=== PATIENT | male | born 1965 | race Caucasian/White ===

== ENCOUNTER → 2020-07-21 16:42 | Outpatient (CLI) | payer OTHER, SELFPAY ==
[2020-07-21] MEDS: COVID-19 VACC #1, MRNA(MOD) 100 MCG/0.5 ML VIAL IM (17:04)
== END ==
PROVIDERS: Visit Provider Internal Medicine
DX: Z23 Encounter for immunization (principal)
CPT/HCPCS: 0011A; 91301

== ENCOUNTER → 2020-08-11 07:31 | Outpatient (CLI) | payer OTHER, SELFPAY ==
[2020-08-11 08:50] LABS: Add Manual Diff / Slide Review NO; Basophils Absolute Auto 0 /uL (0-100); Basophils Percent Auto 0.5 % (0-2); Eosinophils Absolute Auto 100 /uL (0-450); Eosinophils Percent Auto 2.1 % (2-4); Hematocrit 41.3 % (41-53); Hemoglobin 13.6 g/dL (13.5-17.5); Lymphocytes Absolute Auto 1200 /uL (1100-4500); Lymphocytes Percent Auto 24.9 % (25-40); Mean Corpuscular Hemoglobin 31.1 PG (26-34); Mean Corpuscular Volume 94.1 fL (80-100); Monocytes Absolute Auto 400 /uL (0-900); Monocytes Percent Auto 9.1 % (3-14); Neutrophils Absolute Auto 3000 /uL (1500-7000); Neutrophils Percent Auto 63.4 % (50-75); Platelet Count 257 X10^3/uL (150-400); Red Blood Cell Count 4.39 X10^6/uL (4.5-5.9); Red Cell Distribution Width 13.5 % (11.6-14.8); White Blood Cell Count 4.7 X10^3/uL (4.5-11.0)
[2020-08-11 09:02] LABS: Alanine Aminotransferase 45 IU/L (<50); Albumin 4.5 g/dL (3.5-5.0); Albumin Globulin Ratio 1.7 (1.0-2.8); Alkaline Phosphatase 46 U/L (38-126); Aspartate Aminotransferase 31 IU/L (17-59); Bilirubin Total 0.3 mg/dL (0.2-1.3); Blood Urea Nitrogen 13 mg/dL (9-20); Calcium 9.4 mg/dL (8.4-10.2); Carbon Dioxide 23 mmol/L (22-32); Chloride 107 mmol/L (98-107); Estimated Glomerular Filt Rate > 60.0 mL/min (>60); Globulin 2.7 g/dL (1.7-4.1); Glucose 105 mg/dL (70-100); HEMOLYSIS < 15 (0-50); Potassium 4.2 mmol/L (3.4-5.1); Sodium 138 mmol/L (137-145); Total Protein 7.2 g/dL (6.3-8.2)
[2020-08-11 09:35] LABS: Lithium 0.6 mmol/L (0.6-1.2)
[2020-08-11 10:17] LABS: Color Urine UA Yellow
[2020-08-11 10:18] LABS: Appearance Urine UA Clear; Bilirubin Urine UA Negative (NEGATIVE); Glucose Urine UA NEGATIVE (Negative); Ketones Urine UA NEGATIVE (NEGATIVE); Leukocyte Esterase Urine UA NEGATIVE (NEGATIVE); Nitrite Urine UA NEGATIVE (Negative); Occult Blood Urine UA Negative (Negative); Protein Urine UA Negative (Negative); Urobilinogen Urine UA 0.2 E.U./dL (0.2)
== END ==
PROVIDERS: Referring Provider Psychiatry & Neurology Psychiatry; Visit Provider Psychiatry & Neurology Psychiatry
DX: F31.81 Bipolar II disorder (principal)
CPT/HCPCS: 36415; 80053; 80178; 81003; 85025

== ENCOUNTER → 2020-08-18 13:48 | Outpatient (CLI) | payer OTHER, SELFPAY ==
[2020-08-18] MEDS: COVID-19 VACC #2, MRNA(MOD) 100 MCG/0.5 ML VIAL IM (13:51)
== END ==
PROVIDERS: Visit Provider Internal Medicine
DX: Z23 Encounter for immunization (principal)
CPT/HCPCS: 0012A; 91301

== ENCOUNTER → 2020-09-21 08:33 | Outpatient (CLI) | payer OTHER, SELFPAY ==
[2020-09-21 09:17] LABS: Hemoglobin A1C% w Est Avg Glu 5.5 % (4.0-6.0)
[2020-09-21 09:50] LABS: Cholesterol 239 mg/dL (140-199); HDL Cholesterol 50 mg/dL (40-60); LDL Cholesterol Calculated 160 mg/dL (<100); Triglycerides 146 mg/dL (35-150)
== END ==
PROVIDERS: PCP Family Medicine; Referring Provider Family Medicine; Visit Provider Family Medicine
DX: E78.5 Hyperlipidemia, unspecified (principal); R73.9 Hyperglycemia, unspecified
CPT/HCPCS: 36415; 80061; 83036

== ENCOUNTER → 2021-06-10 16:50 | Outpatient (CLI) | payer OTHER, SELFPAY ==
--- NOTE | 2021-06-10 16:52 | DI.RAD.S_ITS ---
PROCEDURE: XR WRIST RT MIN 3V INDICATIONS: chronic right wrist and elbow pain TECHNIQUE: Three views of the wrist were acquired. COMPARISON: None. FINDINGS: Bones: No acute fractures or dislocations. No suspicious bony lesions. Soft tissues: No suspicious soft tissue calcifications. IMPRESSION: No acute osseous abnormality. If the symptoms persist, consider cross sectional imaging such as MRI or CT for further assessment. Dictated by: Devon Pittman M.D. on 06/10/2021 at 19:17 Approved by: Devon Pittman M.D. on 06/10/2021 at 19:19
--- NOTE | 2021-06-10 16:52 | DI.RAD.S_ITS ---
PROCEDURE: XR ELBOW RT MIN 3V INDICATIONS: chronic right wrist and elbow pain TECHNIQUE: 3 views of the elbow were acquired. COMPARISON: None. FINDINGS: Bones: No acute fractures or dislocations. No suspicious bony lesions. Soft tissues: No elbow joint effusion. No suspicious soft tissue calcifications. IMPRESSION: No acute osseous abnormality. If the symptoms persist, consider cross sectional imaging such as MRI or CT for further assessment. Dictated by: Devon Pittman M.D. on 06/10/2021 at 19:19 Approved by: Devon Pittman M.D. on 06/10/2021 at 19:19
== END ==
PROVIDERS: PCP Family Medicine; Referring Provider Family Medicine; Visit Provider Family Medicine
DX: M25.521 Pain in right elbow (principal); M25.531 Pain in right wrist
CPT/HCPCS: 73080; 73110

== ENCOUNTER → 2021-07-04 13:00 | Outpatient (CLI) | payer OTHER, SELFPAY | PROVIDERS: Family Provider Family Medicine; PCP Family Medicine; Visit Provider Student in an Organized Health Care Education/Training Program | DX: J02.9 Acute pharyngitis, unspecified (principal) | CPT/HCPCS: 87070 ==

== ENCOUNTER → 2021-07-18 10:01 | Outpatient (CLI) | payer OTHER, SELFPAY ==
[2021-07-18 12:37] LABS: Lithium 0.5 mmol/L (0.6-1.2)
== END ==
PROVIDERS: Family Provider Family Medicine; PCP Family Medicine; Referring Provider Psychiatry & Neurology Psychiatry; Visit Provider Psychiatry & Neurology Psychiatry
DX: F31.81 Bipolar II disorder (principal); F43.10 Post-traumatic stress disorder, unspecified
CPT/HCPCS: 36415; 80178

== ENCOUNTER → 2022-03-25 08:19 | Outpatient (CLI) | payer OTHER, SELFPAY ==
[2022-03-25 11:00] LABS: Add Manual Diff / Slide Review NO; Basophils Absolute Auto 0 /uL (0-100); Basophils Percent Auto 0.6 % (0-2); Eosinophils Absolute Auto 100 /uL (0-450); Eosinophils Percent Auto 1.6 % (2-4); Hematocrit 41.2 % (41-53); Hemoglobin 13.4 g/dL (13.5-17.5); Lymphocytes Absolute Auto 1200 /uL (1100-4500); Lymphocytes Percent Auto 24.7 % (25-40); Mean Corpuscular HGB Conc 32.6 % (30-36); Mean Corpuscular Hemoglobin 30.1 PG (26-34); Mean Corpuscular Volume 92.3 fL (80-100); Monocytes Absolute Auto 400 /uL (0-900); Monocytes Percent Auto 7.6 % (3-14); Neutrophils Absolute Auto 3300 /uL (1500-7000); Neutrophils Percent Auto 65.5 % (50-75); Platelet Count 251 X10^3/uL (150-400); Red Blood Cell Count 4.46 X10^6/uL (4.5-5.9); Red Cell Distribution Width 13.2 % (11.6-14.8)
[2022-03-25 11:27] LABS: Cholesterol 204 mg/dL (140-199); HDL Cholesterol 46 mg/dL (40-60); LDL Cholesterol Calculated 137 mg/dL (<100); Triglycerides 106 mg/dL (35-150)
[2022-03-25 11:27] LABS: Creatinine Urine Random 186.3 mg/dL
[2022-03-25 11:31] LABS: Microalbumi Creatinin Ratio Ur 5.9 ug/mg CR (<30); Microalbumin Urine Random 1.1 mg/dL (0-1.6)
== END ==
PROVIDERS: Family Provider Family Medicine; PCP Family Medicine; Referring Provider Family Medicine; Visit Provider Family Medicine
DX: E78.5 Hyperlipidemia, unspecified (principal); F31.81 Bipolar II disorder; F43.10 Post-traumatic stress disorder, unspecified; R73.9 Hyperglycemia, unspecified
CPT/HCPCS: 36415; 80061; 82043; 82570; 85025

== ENCOUNTER → 2022-04-01 07:26 | Outpatient (CLI) | payer OTHER, SELFPAY ==
[2022-04-01 10:31] LABS: Alanine Aminotransferase 39 IU/L (<50); Albumin 4.5 g/dL (3.5-5.0); Albumin Globulin Ratio 1.7 (1.0-2.8); Alkaline Phosphatase 54 U/L (38-126); Aspartate Aminotransferase 23 IU/L (17-59); BUN Creatinine Ratio 21.3 (6-22); Bilirubin Total 0.5 mg/dL (0.2-1.3); Blood Urea Nitrogen 16 mg/dL (9-20); Calcium 9.3 mg/dL (8.4-10.2); Carbon Dioxide 26 mmol/L (22-32); Chloride 104 mmol/L (98-107); Estimated Glomerular Filt Rate > 60 mL/min (>60); Globulin 2.7 g/dL (1.7-4.1); Glucose 112 mg/dL (70-100); HEMOLYSIS < 15 (0-50); Potassium 4.7 mmol/L (3.4-5.1); Sodium 140 mmol/L (137-145); Total Protein 7.2 g/dL (6.3-8.2)
[2022-04-05 13:27] LABS: Acetylcholine Blocking AB 17 % (0-25); Acetylcholine Receptor Bind AB <0.03 nmol/L (0.00-0.24)
== END ==
PROVIDERS: Family Provider Family Medicine; PCP Family Medicine; Referring Provider Family Medicine; Visit Provider Family Medicine
DX: F31.81 Bipolar II disorder (principal); H02.409 Unspecified ptosis of unspecified eyelid; R73.9 Hyperglycemia, unspecified
CPT/HCPCS: 36415; 80053; 83519; 86255

== ENCOUNTER → 2022-07-08 07:30 | Outpatient (CLI) | payer OTHER, SELFPAY ==
[2022-07-08 09:16] LABS: Lithium 0.6 mmol/L (0.6-1.2)
[2022-07-08 09:35] LABS: Free T4, Direct Thyroxine 1.11 ng/dL (0.78-2.19)
[2022-07-08 09:49] LABS: Thyroid Stimulating Hormone 2.11 uIU/mL (0.47-4.68)
== END ==
PROVIDERS: Family Provider Family Medicine; PCP Family Medicine; Referring Provider Psychiatry & Neurology Psychiatry; Visit Provider Psychiatry & Neurology Psychiatry
DX: F31.81 Bipolar II disorder (principal); Z79.899 Other long term (current) drug therapy
CPT/HCPCS: 36415; 80178; 84439; 84443

== ENCOUNTER → 2022-09-01 09:42 | Outpatient (CLI) | payer OTHER, SELFPAY ==
[2022-09-01 11:40] LABS: Add Manual Diff / Slide Review NO; Basophils Absolute Auto 0 /uL (0-100); Basophils Percent Auto 0.6 % (0-2); Eosinophils Absolute Auto 100 /uL (0-450); Eosinophils Percent Auto 2.1 % (2-4); Hematocrit 40.8 % (41-53); Hemoglobin 13.9 g/dL (13.5-17.5); Lymphocytes Absolute Auto 1200 /uL (1100-4500); Lymphocytes Percent Auto 23.5 % (25-40); Mean Corpuscular HGB Conc 34.2 % (30-36); Mean Corpuscular Hemoglobin 30.8 PG (26-34); Mean Corpuscular Volume 90.2 fL (80-100); Monocytes Absolute Auto 400 /uL (0-900); Monocytes Percent Auto 8.2 % (3-14); Neutrophils Absolute Auto 3400 /uL (1500-7000); Neutrophils Percent Auto 65.6 % (50-75); Platelet Count 246 X10^3/uL (150-400); Red Blood Cell Count 4.52 X10^6/uL (4.5-5.9); Red Cell Distribution Width 13.4 % (11.6-14.8); White Blood Cell Count 5.2 X10^3/uL (4.5-11.0)
[2022-09-01 11:49] LABS: Alanine Aminotransferase 53 IU/L (<50); Albumin 4.5 g/dL (3.5-5.0); Albumin Globulin Ratio 1.5 (1.0-2.8); Alkaline Phosphatase 56 U/L (38-126); Aspartate Aminotransferase 31 IU/L (17-59); BUN Creatinine Ratio 18.3 (6-22); Bilirubin Total 0.5 mg/dL (0.2-1.3); Blood Urea Nitrogen 15 mg/dL (9-20); Calcium 9.3 mg/dL (8.4-10.2); Carbon Dioxide 26 mmol/L (22-32); Chloride 103 mmol/L (98-107); Estimated Glomerular Filt Rate > 60 mL/min (>60); Globulin 3.1 g/dL (1.7-4.1); Glucose 114 mg/dL (70-100); HEMOLYSIS < 15 (0-50); Sodium 139 mmol/L (137-145); Total Protein 7.6 g/dL (6.3-8.2)
[2022-09-01 11:57] LABS: Lithium 0.6 mmol/L (0.6-1.2)
[2022-09-01 12:30] LABS: TSH w/ Reflex to FT4 1.28 uIU/mL (0.47-4.68)
[2022-09-02 09:51] LABS: x Labcorp Estim. Avg Glu (eAG) 143 mg/dL (.); x Labcorp Hemoglobin A1c 6.6 % (4.8-5.6)
== END ==
PROVIDERS: Family Provider Family Medicine; PCP Family Medicine; Referring Provider Family Medicine; Visit Provider Family Medicine
DX: F31.81 Bipolar II disorder (principal); G47.30 Sleep apnea, unspecified; R42 Dizziness and giddiness
CPT/HCPCS: 36415; 80053; 80178; 83036; 84443; 85025; 93005

== ENCOUNTER → 2022-09-14 07:43 | Outpatient (CLI) | payer OTHER, SELFPAY | PROVIDERS: Family Provider Family Medicine; PCP Family Medicine; Referring Provider Family Medicine; Visit Provider Family Medicine | DX: R00.2 Palpitations (principal); R42 Dizziness and giddiness | CPT/HCPCS: 93246 ==

== ENCOUNTER → 2022-09-22 18:38 | Outpatient (CLI) | payer OTHER, SELFPAY ==
--- NOTE | 2022-09-22 18:40 | DI.MRI.S_ITS ---
PROCEDURE: MR HEAD/BRAIN WO/W CON INDICATIONS: persistent dizziness TECHNIQUE: Noncontrast axial T1 spin echo, axial T2 fast spin echo, sagittal and axial FLAIR, coronal T2 fast spin echo, axial gradient echo, axial diffusion and ADC through the brain. After the administration of contrast, axial and coronal and sagittal T1 spin echo with fat saturation through the brain. COMPARISON: None. FINDINGS: Image quality: Excellent. CSF spaces: Basal cisterns are patent. No extra-axial fluid collections. Ventricles are normal in size and shape. Brain: No midline shift. No intracranial bleeds or masses. No abnormal intracranial enhancement. There is cerebral volume loss for age. There is minimal periventricular white matter chronic small vessel ischemic change. The brainstem appears normal. Diffusion-weighted images demonstrate no acute ischemic insults. No chronic ischemic insults. Normal intravascular flow voids are present. Skull and face: Calvarial marrow is normal in signal. Orbits appear normal. Sinuses: Sinuses and mastoids appear clear. IMPRESSION: 1. Mild volume loss. Minimal small vessel ischemic disease. 2. No acute process. No recent infarct. Dictated by: Bossman Kent M.D. on 09/25/2022 at 9:33 Approved by: Bossman Kent M.D. on 09/25/2022 at 9:34
== END ==
PROVIDERS: Family Provider Family Medicine; PCP Family Medicine; Referring Provider Family Medicine; Visit Provider Family Medicine
DX: R42 Dizziness and giddiness (principal); I67.89 Other cerebrovascular disease
CPT/HCPCS: 70553; A9579

== ENCOUNTER → 2022-10-03 08:44 | Outpatient (CLI) | payer OTHER, SELFPAY ==
--- NOTE | 2022-10-12 14:06 | DIAB.MNT ---
Initial Diabetes Medical Nutrition Therapy Assessment Name: Kartik Guido Date: 10/03/22 Time: 905-10a Dx: Type II Diabetes Provider: Sid Verdugo presents for initial DM visit with his . 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 States they are mostly here to discuss nutrition. Also wondering if DM can be reversed. Endorses FH of DM with father and brother. Currently following a diet on [facility] jeff. would like a more realistic diet incorporating foods they are use to eating. Endorse some constipation, which could be r/t reduced carbs and fiber intake. Diet Recall: 550a: cappuccino with 3-4oz milk and steel cut oats OR PB toast 9a: banana or orange or protein shake 11a: chx with apple and veggies 430p: half beef stick 530p: 3oz chx and 1/2 sweet potato and veggie sn: dark chocolate [place]: water, unsweet tea, coffee, sf red bull Anthropometrics: Ht: 6' Wt: 277# 08/2022 Physical Activity: rower 5-6 days per week for 30-45 min Self-Monitoring Blood Glucose: FBG 59-108mg/dl, usually under 100 per report Diabetes Medications: Ozempic 0.25mg weekly Pertinent Labs: hga1c 6.6% Past Medical History: (Last Updated 09/11/22 @ 09:04 by Jonathan Lau DO) Colon polyps Dizziness Family history of colon cancer Fractures (~2018) Hyperlipidemia Shingles (~2006) Type 2 diabetes mellitus without complication, with no history of insulin use Nutrition Rx: 45g CHO per meal (min 30g) ; snack: 15-30g Nutrition Diagnosis: - Nutrition and food related knowledge deficit r/t new dx t2Dm aeb HgA1c 6.6% and pt report Intervention: This participant was very receptive. Provided appropriate educational handouts. Discussed the following topics: Completed intake assessment. Discussed barriers to care. Brief pathophysiology of T2DM Importance of self-monitoring, how often, and when to check. Suggested checking at different times to evaluate meals Plate Method, impact of macronutrients on blood sugar, meal timing, carbohydrate counting, pairing macronutrients and spreading out carbohydrates for better blood glucose management Recommended servings for carbohydrates at meals and snacks Heart [facility] nutrition Brainstormed appropriate meal plan based on food preferences Role of physical activity DM reversal versus remission DM pathophysiology that cannot be reversed, ie beta cell dysfunction Choosing realistic sustainable diet changes Created SMART goals for patient self-care and success. Goals: Add pro to breakfast Check a few pc BG Follow-up: BRIAN LEWIS follow-up prn Annabel Gilman RDN, JOSHUA Certified Diabetes Care and Surveillance Monitor P: [phone] Thank you for this referral
== END ==
PROVIDERS: Absent Provider Family Medicine; Family Provider Family Medicine; PCP Family Medicine; Referring Provider Family Medicine; Visit Provider Family Medicine
DX: E11.9 Type 2 diabetes mellitus without complications (principal); Z79.85 Long-term (current) use of injectable non-insulin antidiabetic drugs; Z71.3 Dietary counseling and surveillance
CPT/HCPCS: 97802

== ENCOUNTER 2022-11-11 14:37 | Emergency (ER) | payer OTHER, SELFPAY ==
[2022-11-11] VITALS (13 sets, daily range): BP systolic 128–162; BP diastolic 68–85; PULSE 72–87; RESP 17–22; TEMP 36.3; O2SAT 97–100; BMI 30.3
--- NOTE | 2022-11-11 16:04 | DI.US.S_ITS ---
PROCEDURE: US PERIPH VENOUS LOW EXTREM LT INDICATIONS: POST OP SWELLING TECHNIQUE: Real-time imaging, as well as color and pulse Doppler interrogation, were performed of the lower extremity deep veins from the inguinal ligament to the popliteal fossa. COMPARISON: None. FINDINGS: The common femoral, femoral and popliteal veins are normally compressible, and free of intraluminal thrombus. Color and pulse Doppler demonstrate normal phasic intraluminal flow. There is normal augmentation response to distal compression maneuver. IMPRESSION: Negative for deep venous thrombosis of the left lower extremity. Dictated by: Ronni Horton M.D. on 11/11/2022 at 15:37 Approved by: Ronni Horton M.D. on 11/11/2022 at 15:37
[2022-11-11 16:49] LABS: Add Manual Diff / Slide Review NO; Basophils Absolute Auto 100 /uL (0-100); Basophils Percent Auto 1.4 % (0-2); Eosinophils Absolute Auto 100 /uL (0-450); Eosinophils Percent Auto 0.9 % (2-4); Hemoglobin 12.8 g/dL (13.5-17.5); Lymphocytes Absolute Auto 900 /uL (1100-4500); Lymphocytes Percent Auto 13.4 % (25-40); Mean Corpuscular HGB Conc 33.7 % (30-36); Mean Corpuscular Hemoglobin 30.8 PG (26-34); Mean Corpuscular Volume 91.3 fL (80-100); Monocytes Absolute Auto 500 /uL (0-900); Neutrophils Absolute Auto 5300 /uL (1500-7000); Neutrophils Percent Auto 77.3 % (50-75); Platelet Count 272 X10^3/uL (150-400); Red Blood Cell Count 4.16 X10^6/uL (4.5-5.9); Red Cell Distribution Width 13.3 % (11.6-14.8); White Blood Cell Count 6.9 X10^3/uL (4.5-11.0)
[2022-11-11] MEDS: CEFAZOLIN VIAL 1 GM in SODIUM CHLORIDE 0.9% 100 ML IV (16:53)
[2022-11-11 16:59] LABS: Alanine Aminotransferase 45 IU/L (<50); Albumin 4.3 g/dL (3.5-5.0); Albumin Globulin Ratio 1.5 (1.0-2.8); Alkaline Phosphatase 46 U/L (38-126); Aspartate Aminotransferase 30 IU/L (17-59); BUN Creatinine Ratio 17.5 (6-22); Bilirubin Total 0.4 mg/dL (0.2-1.3); Blood Urea Nitrogen 14 mg/dL (9-20); Calcium 9.1 mg/dL (8.4-10.2); Carbon Dioxide 29 mmol/L (22-32); Chloride 105 mmol/L (98-107); Estimated Glomerular Filt Rate > 60 mL/min (>60); Globulin 2.9 g/dL (1.7-4.1); Glucose 68 mg/dL (70-100); HEMOLYSIS < 15 (0-50); Potassium 3.9 mmol/L (3.4-5.1); Sodium 141 mmol/L (137-145); Total Protein 7.2 g/dL (6.3-8.2)
[2022-11-11] MEDS: ONDANSETRON 4 MG/2 ML INJ IV (17:19)
--- NOTE | 2022-11-11 17:21 | ED_ITS ---
HPI - Skin/Abscess/Foreign Bdy General Chief complaint: Skin/Abscess/Foreign Body Stated complaint: post op infected LT leg Time Seen by Provider: 11/11/22 16:04 Source: patient and family Mode of arrival: Ambulatory History of Present Illness HPI narrative: Patient 57-year-old male history of bipolar, diabetes presenting today postop d ay 3 from a peroneal nerve release with Dr. Galvan. He reports he had surgery a couple days ago today he has more redness pain and swelling. No fever or chills. He is able to ambulate without any difficulty. Related Data Home Medications Medication Instructions Recorded Confirmed omega-3 fatty acids 1,000 mg 2,000 mg PO DAILY 04/12/20 09/11/22 capsule (Fish Oil Concentrate) propranolol 20 mg tablet 20 mg PO .qd tremor and acute 06/10/21 09/11/22 anxiety suvorexant 20 mg tablet (Belsomra) 20 mg PO BEDTIME 09/01/22 09/11/22 clonidine HCl 0.1 mg tablet See Rx Instructions PO BEDTIME 11/11/22 11/11/22 insomnia Previous Rx's Medication Instructions Recorded lithium carbonate 450 mg 900 mg PO BEDTIME #180 tabs 01/03/22 tablet,extended release alprazolam 0.25 mg tablet (Xanax) 0.25 mg PO DAILY PRN anxiety #30 06/19/22 tabs atorvastatin 20 mg tablet (Lipitor) 20 mg PO BEDTIME cholesterol #90 09/11/22 tabs blood sugar diagnostic (Advocate #100 renu 09/11/22 Test Strips) blood-glucose meter (Advocate #1 renu 09/11/22 Blood Glucose Monitor) gabapentin 100 mg capsule 100 - 300 mg PO BEDTIME restless 09/11/22 legs #90 caps lancets 28 gauge (1st Tier Unilet #100 ea 09/11/22 ComforTouch Lancet) meclizine 25 mg tablet 25 mg PO TID PRN dizziness #30 tabs 09/11/22 alcohol swabs 1 pad topical QID Use to check BG 09/14/22 QID QAC&HS #200 ea blood sugar diagnostic (Blood #50 ea 09/14/22 Glucose Test strips) blood-glucose meter #1 renu 09/14/22 empty container (Sharps Container) #1 ea 09/14/22 lancets 30 gauge #200 ea 09/14/22 ropinirole 1 mg tablet 1 mg PO BEDTIME #30 tabs 10/09/22 semaglutide 1 mg/dose (2 mg/1.5 1 mg (0.75 mL) SUBCUT QWEEK #3 mL 11/08/22 mL) subcutaneous pen injector cephalexin 500 mg capsule 500 mg PO QID 7 days #28 caps 11/11/22 Allergies Allergy/AdvReac Type Severity Reaction Status Date / Time No Known Drug Allergies Allergy Verified 11/11/22 14:55 Review of Systems Review of Systems ROS Unobtainable: All systems reviewed & are unremarkable except as noted in HPI and below Patient History Medical History Colon polyps Dizziness Family history of colon cancer Fractures (~2018) Hyperlipidemia Shingles (~2006) Type 2 diabetes mellitus without complication, with no history of insulin use Surgical History Anesthesia History of appendectomy (~1984) History of hip surgery (~1980) Family History Father Diabetes mellitus History of heart disease Hypertension Mother ALS (amyotrophic lateral sclerosis) Brother Diabetes mellitus Brother Hyperlipidemia Sister Multiple sclerosis Grandfather History of heart disease Family/Other Mental health problem Social History Smoking Status: Former smoker Smoking Status: Former smoker alcohol intake frequency: other Substance Use Type: does not use Exam Initial Vital Signs Initial Vital Signs: Vital Signs Temperature 97.4 F L 11/11/22 14:51 Pulse Rate 81 11/11/22 14:51 Respiratory Rate 17 11/11/22 14:51 Blood Pressure 162/83 H 11/11/22 14:51 Pulse Oximetry 99 11/11/22 14:51 Oxygen Delivery Method Room Air 11/11/22 14:51 GENERAL: Well-appearing, well-nourished and in no acute distress. CARDIOVASCULAR: peripheral pulses in tact, cap refill <2 sec RESPIRATORY: No respiratory distress, speaks in full sentences without difficulty EXTREMITIES: Normal range of motion, no clubbing or edema. Neurovascularly intact NEUROLOGICAL: Cranial nerves II through XII grossly intact. Normal gait and speech. SKIN: Left lower leg incision site is clean and dry. There is some mild surrounding erythema expanding beyond the dressing. The dressing is removed he incision site looks good no obvious drainage some dried blood. Mild swelling no significant tenderness. Course Orders Ordered: ED Orders 11/11/22 16:04 US periph venous low extrem lt Stat 11/11/22 16:35 CBC Auto Diff [Complete Blood Count AUTO DIFF] Stat CMP [Comprehensive Metabolic Panel] Stat 11/11/22 16:45 Blood Culture Stat Discontinued Medications Cefazolin Sodium 1 gm/ Sodium (Chloride) 100 mls @ 200 mls/hr IV NOW ONE Stop: 11/11/22 16:33 Last Infusion: 11/11/22 17:35 Dose: 0 mls/hr Documented By: Admin: 11/11/22 16:53 Dose: 200 mls/hr Documented By: RB Ondansetron HCl (Ondansetron 4 Mg/2 Ml Inj) 4 mg IV NOW ONE Stop: 11/11/22 17:09 Last Admin: 11/11/22 17:19 Dose: 4 mg Documented By: KORIN Vital Signs Vital signs: Vital Signs - 8 hr 11/11/22 14:51 11/11/22 15:10 11/11/22 15:10 Temperature 97.4 F L Pulse Rate 81 77 Respiratory Rate 17 Blood Pressure 162/83 H 140/78 Pulse Oximetry 99 98 Oxygen Delivery Method Room Air 11/11/22 15:15 11/11/22 15:15 11/11/22 15:30 Temperature Pulse Rate 80 Respiratory Rate Blood Pressure 138/77 136/75 Pulse Oximetry 97 Oxygen Delivery Method 11/11/22 15:30 11/11/22 15:45 11/11/22 15:45 Temperature Pulse Rate 75 78 Respiratory Rate Blood Pressure 135/76 Pulse Oximetry 97 99 Oxygen Delivery Method 11/11/22 15:55 11/11/22 16:00 11/11/22 16:02 Temperature Pulse Rate 87 77 Respiratory Rate Blood Pressure 128/70 Pulse Oximetry 99 99 Oxygen Delivery Method 11/11/22 16:30 11/11/22 17:00 11/11/22 17:00 Temperature Pulse Rate 72 75 Respiratory Rate Blood Pressure 141/85 H Pulse Oximetry 99 100 Oxygen Delivery Method 11/11/22 17:15 11/11/22 17:15 11/11/22 18:28 Temperature Pulse Rate 72 82 Respiratory Rate 22 Blood Pressure 138/80 142/68 H Pulse Oximetry 99 97 Oxygen Delivery Method Room Air 11/11/22 17:30 11/11/22 17:30 Temperature Pulse Rate 76 Respiratory Rate Blood Pressure 147/70 H Pulse Oximetry 99 Oxygen Delivery Method MDM - Skin/Abscess/Foreign Bdy Lab Data 11/11/22 16:35 11/11/22 16:35 Labs: Lab Results 11/11/22 11/11/22 Range/Units 16:35 16:35 WBC 6.9 (4.5-11.0) X10^3/uL RBC 4.16 L (4.5-5.9) X10^6/uL Hgb 12.8 L (13.5-17.5) g/dL Hct 38.0 L (41-53) % MCV 91.3 (80-100) fL MCH 30.8 (26-34) PG MCHC 33.7 (30-36) % RDW 13.3 (11.6-14.8) % Plt Count 272 (150-400) X10^3/uL Neut % (Auto) 77.3 H (50-75) % Lymph % (Auto) 13.4 L (25-40) % [place] % (Auto) 7.0 (3-14) % Eos % (Auto) 0.9 L (2-4) % Baso % (Auto) 1.4 (0-2) % Neut # (Auto) 5300 (4183-4286) /uL Lymph # (Auto) 900 L (1824-1393) /uL [place] # (Auto) 500 (0-900) /uL Eos # (Auto) 100 (0-450) /uL Baso # (Auto) 100 (0-100) /uL Sodium 141 (137-145) mmol/L Potassium 3.9 (3.4-5.1) mmol/L Chloride 105 (98-107) mmol/L Carbon Dioxide 29 (22-32) mmol/L BUN 14 (9-20) mg/dL Creatinine 0.80 (0.66-1.25) mg/dL Estimated GFR > 60 (>60) mL/min BUN/Creatinine Ratio 17.5 (6-22) Glucose 68 L (70-100) mg/dL Calcium 9.1 (8.4-10.2) mg/dL Total Bilirubin 0.4 (0.2-1.3) mg/dL AST 30 (17-59) IU/L ALT 45 (<50) IU/L Alkaline Phosphatase 46 (38-126) U/L Total Protein 7.2 (6.3-8.2) g/dL Albumin 4.3 (3.5-5.0) g/dL Globulin 2.9 (1.7-4.1) g/dL Albumin/Globulin Ratio 1.5 (1.0-2.8) Imaging Data US - DVT: Radiologist's Impression: PROCEDURE:? US PERIPH VENOUS LOW EXTREM LT ? INDICATIONS:? POST OP SWELLING ? TECHNIQUE:? Real-time imaging, as well as color and pulse Doppler interrogation, were performed of the lower extremity deep veins from the inguinal ligament to the popliteal fossa.? ? COMPARISON:? None. ? FINDINGS:? The common femoral, femoral and popliteal veins are normally compressible, and free of intraluminal thrombus.? Color and pulse Doppler demonstrate normal phasic intraluminal flow.? There is normal augmentation response to distal compression maneuver. ? ? IMPRESSION:? Negative for deep venous thrombosis of the left lower extremity. ? ? ? Dictated by: Ronni Horton M.D. on 11/11/2022 at 15:37 ? ? Approved by: Ronni Horton M.D. on 11/11/2022 at 15:37 MDM Narrative Medical decision making narrative: Patient 57-year-old male postop peroneal nerve release presenting today with erythema at swelling at surgical site. No evidence of severe sepsis but probable mild cellulitis. No evidence of DVT incision site does not have any drainage. Blood cultures are pending he is given a dose of Ancef. He is no leukocytosis fever. Dr. Olvera on-call orthopedic surgeon updated on symptoms agrees with oral antibiotics and outpatient follow-up. Discharge Plan Departure Patient Disposition: Home Clinical Impression: Cellulitis Instructions: DI for Cellulitis -- Adult Activity Restrictions/Additional Instructions: *You have been diagnosed with cellulitis *What to do: At this time please monitor closely for worsening redness fever or pain. Please follow-up closely with Dr. Galvan. You were given 1 dose of IV antibiotics in the ED machine operator picker prescription tomorrow. *Continue to take medications as directed Keflex 500 mg 4 times a day *Follow up with your primary care provider in 2-3 days or call [phone] *Return to ER if you should have increasing redness pain swelling fever or any new, worsening or concerning symptoms Prescriptions: New cephalexin 500 mg capsule 500 mg PO QID 7 Days Qty: 28 0RF No Action omega-3 fatty acids [Fish Oil Concentrate] 1,000 mg capsule 2,000 mg PO DAILY Rx Instructions: 4 caps daily for MDD 4,000mg lithium carbonate 450 mg tablet extended release 900 mg PO BEDTIME Qty: 180 3RF alprazolam [Xanax] 0.25 mg tablet 0.25 mg PO DAILY PRN (Reason: anxiety) Qty: 30 1RF (DME) blood-glucose meter Misc See Rx Instructions .Route Qty: 1 8RF Rx Instructions: Use to check BG QID QAC&HS (DME) Blood Glucose Test Strip See Rx Instructions .Route Qty: 50 8RF Rx Instructions: Use to check BG QID QAC&HS (DME) lancets 30 gauge misc See Rx Instructions .Route Qty: 200 8RF Rx Instructions: Use to check BG QID QAC&HS (DME) Sharps Container Misc See Rx Instructions .Route Qty: 1 8RF Rx Instructions: Use to check BG QID QAC&HS alcohol swabs Pads, Medicated 1 pad topical QID Qty: 200 8RF ropinirole 1 mg tablet 1 mg PO BEDTIME Qty: 30 11RF Rx Instructions: administer 1-3 hours before bedtime semaglutide 1 mg/dose (2 mg/1.5 mL) pen injector 1 mg SUBCUT QWEEK Qty: 3 11RF propranolol 20 mg tablet 20 mg PO .qd Rx Instructions: 10-20 mg TID prn MDD 60mg Belsomra 20 mg tablet 20 mg PO BEDTIME atorvastatin [Lipitor] 20 mg tablet 20 mg PO BEDTIME Qty: 90 3RF meclizine 25 mg tablet 25 mg PO TID PRN (Reason: dizziness) Qty: 30 11RF gabapentin 100 mg capsule 100 - 300 mg PO BEDTIME Qty: 90 0RF (DME) blood-glucose meter [Advocate Blood Glucose Monitor] Misc See Rx Instructions .ROUTE .MEDSUPPLY Qty: 1 0RF Rx Instructions: As directed, once daily as needed (DME) Advocate Test Strips Strip See Rx Instructions .ROUTE .MEDSUPPLY Qty: 100 3RF Rx Instructions: As directed, once daily as needed (DME) lancets [1st Tier Unilet ComforTouch] 28 gauge misc See Rx Instructions .ROUTE .MEDSUPPLY Qty: 100 3RF Rx Instructions: As directed, once daily as neededd clonidine HCl 0.1 mg tablet See Rx Instructions PO BEDTIME Rx Instructions: 0.1 to 0.2 mg (1 or 2 tabs) PO bedtime; Referrals: Jonathan Lau DO [Primary Care Provider] - Nidia Perdomo MD [Physician] - Stand Alone Forms: Patient Portal/API
== END 2022-11-11 18:29 | disposition home or self-care (01) ==
PROVIDERS: Emergency Provider Emergency Medicine; Family Provider Family Medicine; PCP Family Medicine
DX: L03.116 Cellulitis of left lower limb (principal)
CPT/HCPCS: 36415; 80053; 85025; 87040; 93971; 96365; 96375; 99284; J0690; J2405

== ENCOUNTER → 2023-06-23 07:37 | Outpatient (CLI) | payer OTHER, SELFPAY ==
[2023-06-23 08:31] LABS: Lithium 0.7 mmol/L (0.6-1.2)
[2023-06-23 08:34] LABS: Cholesterol 157 mg/dL (140-199); HDL Cholesterol 46 mg/dL (40-60); LDL Cholesterol Calculated 96 mg/dL (<100); Triglycerides 76 mg/dL (35-150)
[2023-06-23 09:05] LABS: TSH w/ Reflex to FT4 1.73 uIU/mL (0.47-4.68)
== END ==
LOC: LAB 07:39
PROVIDERS: Family Provider Family Medicine; PCP Family Medicine; Referring Provider Family Medicine; Visit Provider Family Medicine
DX: E78.5 Hyperlipidemia, unspecified (principal); F31.81 Bipolar II disorder; R25.1 Tremor, unspecified; E11.9 Type 2 diabetes mellitus without complications
CPT/HCPCS: 36415; 80061; 80178; 84443

== ENCOUNTER 2023-08-22 08:35 | Day surgery (SDC) | payer OTHER, SELFPAY ==
[2023-08-22 08:57] VITALS: BP 138/83; PULSE 84; RESP 17; TEMP 36.2; O2SAT 99
--- NOTE | 2023-08-22 09:17 | PM.HP.1 ---
History of Present Illness History of Present Illness Date Patient Seen: 08/22/23 Chief complaint: Dx Colonoscopy Narrative: History of colon polyps [facility] Medical History (Updated 06/18/23 @ 16:42 by Jonathan Lau DO) Tremor Type 2 diabetes mellitus without complication, with no history of insulin use Dizziness Fractures (~2018) Shingles (~2006) Colon polyps Family history of colon cancer Hyperlipidemia Surgical History Anesthesia History of appendectomy (~1984) History of hip surgery (~1980) Family History Father Diabetes mellitus History of heart disease Hypertension Mother ALS (amyotrophic lateral sclerosis) Brother Diabetes mellitus Brother Hyperlipidemia Sister Multiple sclerosis Grandfather History of heart disease Family/Other Mental health problem Social History Smoking Status: Former smoker Meds Home Medications and Allergies Home Medications Medication Instructions Recorded Confirmed Type omega-3 fatty acids 1,000 mg 2,000 mg PO DAILY 04/12/20 06/18/23 History capsule (Fish Oil Concentrate) blood sugar diagnostic (Advocate #100 ea 09/11/22 06/18/23 Rx Test Strips) blood-glucose meter (Advocate #1 ea 09/11/22 06/18/23 Rx Blood Glucose Monitor) lancets 28 gauge (1st Tier Unilet #100 ea 09/11/22 06/18/23 Rx ComforTouch Lancet) alcohol swabs 1 pad topical QID Use to check BG 09/14/22 06/18/23 Rx QID QAC&HS #200 ea blood sugar diagnostic (Blood #50 ea 09/14/22 06/18/23 Rx Glucose Test strips) blood-glucose meter #1 ea 09/14/22 06/18/23 Rx empty container (Sharps Container) #1 ea 09/14/22 06/18/23 Rx lancets 30 gauge #200 ea 09/14/22 06/18/23 Rx gabapentin 100 mg capsule 100 - 300 mg (1 - 3 x 100 mg) PO 12/18/22 08/22/23 Rx BEDTIME restless legs #90 caps alprazolam 0.25 mg tablet (Xanax) 0.25 mg PO DAILY PRN anxiety #30 12/27/22 08/22/23 Rx tabs clonidine HCl 0.1 mg tablet See Rx Instructions PO BEDTIME 12/27/22 08/22/23 Rx insomnia #60 tabs lithium carbonate 450 mg 900 mg (2 x 450 mg) PO BEDTIME 12/27/22 08/22/23 Rx tablet,extended release #180 tabs semaglutide 1 mg/dose (4 mg/3 mL) 2 mg (1.5 mL) SUBCUT QWEEK #6 mL 03/20/23 06/18/23 Rx subcutaneous pen injector (Ozempic) Allergies Allergy/AdvReac Type Severity Reaction Status Date / Time equacell AdvReac Unknown Uncoded 06/18/23 16:15 Exam Vital Signs (past 8 hours): - 08/22/23 08:57 Temperature 97.2 F L Pulse Rate 84 Respiratory Rate 17 Blood Pressure 138/83 Pulse Oximetry 99 Narrative Exam Narrative: Oropharynx free of lesions Chest clear to auscultation percussion Cardiac exam reveals no S3 or murmur Assessment & Plan Assessment & Plan narrative: History of colon polyps need for colonoscopy. Last colonoscopy 9 years ago. Risks, benefits, alternatives have been
--- NOTE | 2023-08-22 09:18 | PM.OP.COLON ---
Operative Date/Time/Diagnoses Date of procedure: 08/22/23 Pre-op diagnosis: See indication and findings Procedure & Clinicians Study performed: Colonoscopy Indications: History of polyps Surgeon: Mayra Pride Procedure Notes Procedure in detail: After informed consent was obtained the patient was placed in left lateral decubitus position. The video colonoscope was introduced the rectum slowly advanced cecum. Preparation was good. On slow withdrawal mucosa was carefully examined. The scope was removed. The patient tolerated procedure well. Blood loss none Complications none Sedation mac Findings 1. Normal colonoscopy to cecum Follow-up colonoscopy suggested in 7 years
[2023-08-22] MEDS: LACTATED RINGERS 1,000 ML 42 ML IV (09:19)
[2023-08-22 09:47] VITALS: BP 107/59; PULSE 89; RESP 16; TEMP 36.6; O2SAT 98
[2023-08-22 09:49] VITALS: BP 110/78; PULSE 58; RESP 16; O2SAT 99
[2023-08-22 09:56] VITALS: BP 130/81; PULSE 86; RESP 12; TEMP 36.6; O2SAT 100
== END 2023-08-22 10:13 | disposition home or self-care (01) ==
PROVIDERS: Family Provider Family Medicine; PCP Family Medicine; Referring Provider Internal Medicine Gastroenterology; Visit Provider Internal Medicine Gastroenterology
PROC: 0DJD8ZZ Inspection of Lower Intestinal Tract, Via Natural or Artificial Opening Endoscopic (ICD-10-PCS; CPT 45378; principal; 2023-08-22 09:30)
DX: Z12.11 Encounter for screening for malignant neoplasm of colon (principal); Z86.010 Personal history of colon polyps
CPT/HCPCS: G0105; J2704

== ENCOUNTER → 2023-12-22 07:33 | Outpatient (CLI) | payer OTHER, SELFPAY ==
[2023-12-22 08:28] LABS: Hematocrit 40.2 % (41-53); Hemoglobin 13.6 g/dL (13.5-17.5); Mean Corpuscular HGB Conc 33.8 % (30-36); Mean Corpuscular Hemoglobin 31.1 PG (26-34); Mean Corpuscular Volume 92.2 fL (80-100); Platelet Count 261 X10^3/uL (150-400); Red Blood Cell Count 4.36 X10^6/uL (4.5-5.9); Red Cell Distribution Width 13.2 % (11.6-14.8); White Blood Cell Count 5.2 X10^3/uL (4.5-11.0)
[2023-12-22 08:35] LABS: Hemoglobin A1C% w Est Avg Glu 5.1 % (4.0-6.0)
[2023-12-22 08:37] LABS: Lithium 0.7 mmol/L (0.6-1.2)
[2023-12-22 08:42] LABS: Alanine Aminotransferase 34 IU/L (<50); Albumin 4.4 g/dL (3.5-5.0); Albumin Globulin Ratio 1.9 (1.0-2.8); Alkaline Phosphatase 50 U/L (38-126); Aspartate Aminotransferase 26 IU/L (17-59); Bilirubin Total 0.6 mg/dL (0.2-1.3); Blood Urea Nitrogen 16 mg/dL (9-20); Calcium 9.3 mg/dL (8.4-10.2); Carbon Dioxide 24 mmol/L (22-32); Chloride 107 mmol/L (98-107); Cholesterol 157 mg/dL (140-199); Estimated Glomerular Filt Rate > 60 mL/min (>60); Globulin 2.3 g/dL (1.7-4.1); Glucose 88 mg/dL (70-100); HDL Cholesterol 46 mg/dL (40-60); HEMOLYSIS < 15 (0-50); LDL Cholesterol Calculated 95 mg/dL (<100); Potassium 4.3 mmol/L (3.4-5.1); Sodium 141 mmol/L (137-145); Total Protein 6.7 g/dL (6.3-8.2); Triglycerides 82 mg/dL (35-150)
[2023-12-22 08:45] LABS: Creatinine Urine Random 220.44 mg/dL
[2023-12-22 08:49] LABS: Microalbumin Urine Random 1.1 mg/dL (0-1.6)
[2023-12-22 08:58] LABS: Vitamin D 25 Hydroxy (D3) 36.4 ng/mL (30.0-100.0)
[2023-12-22 09:16] LABS: Ferritin 197 ng/mL (18-464); Testosterone 401 ng/dL (71.8-623)
[2023-12-22 09:30] LABS: Vitamin B12 292 pg/mL (239-931)
[2023-12-23 03:31] LABS: HIV 1 & 2 Ab/Ag 4th Gen Combo NEGATIVE (NEGATIVE); Hep C Virus Ab w/Reflex Quant NEGATIVE s/c (NEGATIVE)
== END ==
PROVIDERS: Family Provider Family Medicine; PCP Family Medicine; Referring Provider Family Medicine; Visit Provider Family Medicine
DX: E11.9 Type 2 diabetes mellitus without complications (principal); E78.5 Hyperlipidemia, unspecified; F31.81 Bipolar II disorder; R53.82 Chronic fatigue, unspecified; R68.82 Decreased libido; G25.81 Restless legs syndrome; D64.9 Anemia, unspecified
CPT/HCPCS: 36415; 80053; 80061; 80178; 82043; 82306; 82570; 82607; 82728; 83036; 84403; 85027; 86803; 87389

== ENCOUNTER → 2024-06-20 09:02 | Outpatient (CLI) | payer OTHER, SELFPAY ==
[2024-06-20 10:28] LABS: Hemoglobin A1C% w Est Avg Glu 4.8 % (4.0-6.0)
[2024-06-20 10:45] LABS: BUN Creatinine Ratio 18.9 (6-22); Blood Urea Nitrogen 18 mg/dL (9-20); Calcium 9.6 mg/dL (8.4-10.2); Carbon Dioxide 27 mmol/L (22-32); Chloride 105 mmol/L (98-107); Estimated Glomerular Filt Rate > 60 mL/min (>60); Glucose 88 mg/dL (80-110); HEMOLYSIS < 15 (0-50); Potassium 4.5 mmol/L (3.4-5.1); Sodium 142 mmol/L (137-145)
[2024-06-20 11:13] LABS: Prostate Specific Antigen Scrn 0.556 ng/mL (0.1-4.0)
== END ==
LOC: LAB 09:03
PROVIDERS: Family Provider Family Medicine; PCP Family Medicine; Referring Provider Family Medicine; Visit Provider Family Medicine
DX: Z12.5 Encounter for screening for malignant neoplasm of prostate (principal); E11.9 Type 2 diabetes mellitus without complications; F31.81 Bipolar II disorder
CPT/HCPCS: 36415; 80048; 83036; G0103

== ENCOUNTER → 2024-07-02 10:59 | Outpatient (CLI) | payer OTHER, SELFPAY ==
[2024-07-02 12:21] LABS: Lithium 0.6 mmol/L (0.6-1.2)
== END ==
PROVIDERS: Family Provider Family Medicine; PCP Family Medicine; Referring Provider Psychiatry & Neurology Psychiatry; Visit Provider Psychiatry & Neurology Psychiatry
DX: Z79.899 Other long term (current) drug therapy (principal)
CPT/HCPCS: 36415; 80178

== ENCOUNTER → 2024-12-02 09:03 | Outpatient (CLI) | payer OTHER, SELFPAY ==
[2024-12-02 10:23] LABS: Alanine Aminotransferase 40 IU/L (<50); Albumin 4.5 g/dL (3.5-5.0); Albumin Globulin Ratio 1.7 (1.0-2.8); Alkaline Phosphatase 51 U/L (38-126); Blood Urea Nitrogen 14 mg/dL (9-20); Calcium 9.6 mg/dL (8.4-10.2); Carbon Dioxide 27 mmol/L (22-32); Chloride 106 mmol/L (98-107); Cholesterol 133 mg/dL (140-199); Estimated Glomerular Filt Rate > 60 mL/min (>60); Globulin 2.6 g/dL (1.7-4.1); Glucose 90 mg/dL (70-99); HDL Cholesterol 49 mg/dL (40-60); HEMOLYSIS < 15 (0-50); Potassium 4.4 mmol/L (3.4-5.1); Sodium 141 mmol/L (137-145); Total Protein 7.1 g/dL (6.3-8.2); Triglycerides 96 mg/dL (35-150)
[2024-12-02 14:18] LABS: Hemoglobin A1C% w Est Avg Glu 5.3 % (4.0-6.0)
== END ==
PROVIDERS: PCP Family Medicine; Referring Provider Family Medicine; Visit Provider Family Medicine
DX: E11.9 Type 2 diabetes mellitus without complications (principal); F31.81 Bipolar II disorder; E78.5 Hyperlipidemia, unspecified
CPT/HCPCS: 36415; 80053; 80061; 83036